=== PATIENT | female | born 1975 | race Caucasian/White ===

== ENCOUNTER → 2023-12-13 | Outpatient (CLI) | payer BC ==
--- NOTE | 2023-12-14 09:21 | MM ---
Reason for Exam: Screening (asymptomatic). Baseline mammogram. Patient History: Menarche at age 16. Patient has no children. Last menstrual period: 12/09/2023 Risk Values: Leslye 5 year model risk: 0.9%. NCI Lifetime model risk: 9.5%. Prior Study Comparison: Patient's first Mammogram. Tissue Density: There are scattered fibroglandular densities. Findings: Analyzed By CAD. There is no suspicious group of microcalcifications or new suspicious mass. Overall Assessment: Negative, BI-RAD 1 Management: Screening Mammogram of both breasts in [address] [facility] will attempt to contact patient to return for supplemental views and ultrasound if indicated. Patient should continue monthly self-breast exams. A clinical breast exam by your physician is recommended on an annual basis. This exam should not preclude additional follow-up of suspicious palpable abnormalities. Note on Leslye scores and lifetime risk: 1. A Leslye score greater than 3% is considered moderate risk. If this is the case, consider specialist referral to assess eligibility for a risk reducing agent. 2. If overall lifetime risk for the development of breast cancer is 20% or higher, the patient may qualify for future screening with alternating mammogram and breast MRI. Electronically signed and approved by: Nigel Jacobsen DO
== END | disposition home or self-care (01) ==
LOC: RADMAMWWP 07:23
PROVIDERS: ATTEND Obstetrics & Gynecology
DX: Z12.31 Encounter for screening mammogram for malignant neoplasm of breast (principal)
CPT/HCPCS: 77063; 77067

== ENCOUNTER 2024-02-24 09:16 | Day surgery (SDC) | payer BC ==
[2024-02-22 14:08] VITALS: BMI 31.0
[2024-02-24 09:58] VITALS: TEMP 97.5
[2024-02-24] MEDS: LACTATED RINGERS 1,000 ML IV SCH (09:59)
[2024-02-24] MEDS ORDERED: PROPOFOL 10 MG/ML 20 ML VIAL IV ONE (10:10)
--- NOTE | 2024-02-24 10:27 | P.PCN ---
Date of Procedure: 02/24/24 Procedure(s) Performed: BRIEF HISTORY: Patient is a 48-year-old pleasant white female scheduled for an elective colonoscopy as a part of screening for colon cancer. PROCEDURE PERFORMED: Colonoscopy. PREOPERATIVE DIAGNOSIS: Screening for colon cancer. IV sedation per Anesthesia. PROCEDURE: After informed consent was obtained, the patient, was brought into the endoscopy unit. IV sedation was administered by Anesthesia under continuous monitoring. Digital rectal examination was normal. Initially the Olympus CF-160 flexible video colonoscope was then inserted in the rectum, gradually advanced into the cecum without any difficulty. Careful examination was performed as the scope was gradually being withdrawn. Ileocecal valve and the appendiceal orifice were visualized and appeared normal. Prep was excellent. Mucosa of the cecum, ascending colon, transverse colon, descending colon, sigmoid colon, and rectum appeared normal.Scattered sigmoid diverticulosis. Retroflexion was performed in the rectum and no lesions were seen. The patient tolerated the procedure well. IMPRESSION: Normal-appearing colon from rectum to cecum with no evidence of colorectal Nnoplasia. Scattered sigmoid diverticulosis. RECOMMENDATIONS: Findings of this examination were discussed with the patient as well as a family. She was advised to have a repeat screening colonoscopy in 10 years from
[2024-02-24 11:28] VITALS: BP 111/72; PULSE 51; RESP 18
== END 2024-02-24 11:00 | disposition home or self-care (01) ==
LOC: ORWHC2ENDO 09:16
PROVIDERS: ATTEND Internal Medicine Gastroenterology
DX: Z12.11 Encounter for screening for malignant neoplasm of colon (principal); K57.30 Diverticulosis of large intestine without perforation or abscess without bleeding; Z88.5 Allergy status to narcotic agent; Z87.891 Personal history of nicotine dependence; Z98.890 Other specified postprocedural states
CPT/HCPCS: 81025; 45378; J2704

== ENCOUNTER → 2024-03-19 | Outpatient (CLI) | payer BC ==
[2024-03-19 10:54] LABS: Blood Urea Nitrogen 13.2 mg/dL (9.0-27.0); Calcium 9.6 mg/dL (8.7-10.3); Carbon Dioxide 25.3 mmol/L (21.6-31.8); Chloride 104 mmol/L (96-109); Glucose 101 mg/dL (70-110); Potassium 5.2 mmol/L (3.5-5.5); Sodium 139 mmol/L (135-145)
[2024-03-19 13:20] LABS: Basophils # (A) 0.05 X 10*3/uL (0.00-0.10); Basophils % (A) 1.1 %; Eosinophils # (A) 0.31 X 10*3/uL (0.04-0.35); Eosinophils % (A) 6.8 %; HCT 43.5 % (37.2-46.3); HGB 14.4 g/dL (12.0-15.0); Lymphocytes # (A) 1.31 X 10*3/uL (0.90-5.00); Lymphocytes % (A) 28.9 %; MCHC 33.1 g/dL (32.0-37.0); MCV 96.7 FL (80.0-97.0); Mean Platelet Volume 11.5 FL (9.5-12.2); Monocytes # (A) 0.39 X 10*3/uL (0.20-1.00); Monocytes % (A) 8.6 %; NRBC Per 100 WBC 0 X 10*3/uL (0.00-0.01); Neutrophils # (A) 2.46 X 10*3/uL (1.80-7.70); Neutrophils % (A) 54.4 %; Platelet Count 210 X 10*3/uL (140-440); RBC Morphology Normal (Normal); RDW 12.1 % (11.5-14.5); WBC 4.53 X 10*3/uL (4.50-10.00)
== END | disposition home or self-care (01) ==
LOC: LABWHC1 07:54
PROVIDERS: ATTEND Orthopaedic Surgery Hand Surgery
DX: Z01.812 Encounter for preprocedural laboratory examination (principal); R22.32 Localized swelling, mass and lump, left upper limb
CPT/HCPCS: 36415; 80048; 85025

== ENCOUNTER 2024-03-28 09:01 | Day surgery (SDC) | payer BC ==
[2024-03-23 16:09] VITALS: BMI 30.2
--- NOTE | 2024-03-26 11:17 | P.HPOR ---
History of Present Illness H&P Date: 03/26/24 Subjective: This is a 48 year old female that presents today for initial evaluation regarding a 2 year history of a left volar wrist soft tissue mass. She denies any injury or inciting event. She states it is minimally symptomatic and only painful when paddling or kayaking. She states it has fluctuated in size over the last year and has increased within the last 6 months. Physical Examination: LUE: AIN/PIN/Radial/Ulnar/Median motor intact. Radial/Ulnar/Median SILT. 2+/4 Radial/Ulnar pulses palpated. 5/5 APB, 5/5 FDI. Negative Finkelsteins, negative CMC grind, negative Durkan's compression. 3x3 cm volar soft tissue mass along radial aspect of wrist. Imaging: X-Rays of the left wrist 3V taken in office today demonstrate no abnormality. Impression: 1.) Left wrist volar soft tissue mass. Plan: Diagnosis and treatment options were discussed with the patient. She has an upcoming [place] in [place] in the middle of March and would like to hold off until after the [place] to have it removed. She is scheduled for left wrist soft tissue mass excision. Risks and benefits of surgery including bleeding, infection, recurrence, damage to surrounding tissue, need for further surgery, residual numbness were discussed and the patient wished to go forward with surgery. The patient was agreeable with this plan. CC: Serafin Davis MD -Abhishek Rosa DO Orthopedic Hand/Upper Extremity Surgeon Past Medical History Past Medical History: No Reported History History of Any Multi-Drug Resistant Organisms: None Reported Past Surgical History: Cholecystectomy Additional Past Surgical History / Comment(s): COLONOSCOPY Past Anesthesia/Blood Transfusion Reactions: No Reported Reaction Additional Past Anesthesia/Blood Transfusion Reaction / Comment(s): no blood transfusion Smoking Status: Former smoker - Past Family History Mother Family Medical History: No Reported History Medications and Allergies Home Medications Medication Instructions Recorded Confirmed Type No Known Home Medications 02/22/24 03/23/24 History Allergies Allergy/AdvReac Type Severity Reaction Status Date / Time meperidine [From Demerol] Allergy Rash/Hives Verified 03/23/24 15:57 Physical Examination Osteopathic Statement: *. No significant issues noted on an osteopathic structural exam other than those noted in the History and Physical/Consult.
[~2024-03-28 09:01] MED LIST: HYDROmorphone 0.5 MG/0.5 ML SYRINGE IVP PRN; LIDOCAINE 1% (10MG/ML) FOR IV START INTRADERMA PRN
[2024-03-28] MEDS: LACTATED RINGERS 1,000 ML IV SCH (09:42)
[2024-03-28] MEDS ORDERED: ONDANSETRON 4 MG/2 ML VIAL ONE (09:48)
[2024-03-28] MEDS: ONDANSETRON 4 MG/2 ML VIAL IVP ONE (09:50)
[2024-03-28] MEDS: DEXAMETHASONE SOD PHOSPHATE 4 MG/ML 1 ML VIAL IV ONE (09:50)
[2024-03-28] MEDS: BUPIVACAINE (PF) 0.5% 30 ML VIAL SQ ONE ×2 (10:24→11:05)
[2024-03-28] MEDS ORDERED: MIDAZOLAM 2 MG/2 ML VIAL ONE (10:24)
[2024-03-28] MEDS ORDERED: fentaNYL (PF) 50 MCG/ML 2 ML AMP ONE (10:24)
[2024-03-28] MEDS ORDERED: PROPOFOL 10 MG/ML 20 ML VIAL IV ONE (10:24)
[2024-03-28] MEDS ORDERED: LIDOCAINE 1% INJ 10MG/ML (20 ML MDV) ONE (10:24)
--- NOTE | 2024-03-28 11:33 | P.OP ---
Date of Procedure: 03/28/24 Preoperative Diagnosis: Left wrist soft tissue mass Postoperative Diagnosis: Left wrist soft tissue mass Procedure(s) Performed: 1.) Left volar wrist soft tissue mass excision, 3.5x3cm 2.) Left wrist flexor carpi radialis tendon sheath decompression Surgeon: Abhishek Rosa Chainstitch Felled Seam Operator #1: [place] Estimated Blood Loss (ml): 0 Pathology: none sent Condition: stable Disposition: PACU Description of Procedure: This is a 48 year old female who presents today for a left wrist volar soft tissue mass excision after having failed conservative treatment. Risks and benefits of surgery were discussed with the patient including bleeding, damage to surrounding tissue, infection, need for further surgery, recurrence, as well as risks of anesthesia including pulmonary embolism and even and the patient wished to proceed with surgical intervention. The patient was seen in th e pre-operative area by myself. Consent and H&P were completed and updated. The correct extremity was marked in the pre-operative area by myself and all other questions were answered. Operative Narrative: The patient was brought to the operating room by the department of anesthesia. They remained on the portable stretcher and a rolling hand table was brought to the side of the operative extremity. Pre-operative time out was performed indicating the correct patient, procedure and laterality. All in the room agreed. Pre-operative antibiotics were given prior to skin incision. The patient was then drifted off to sleep by the department of anesthesia. A nonsterile tourniquet was then applied to the operative extremity and the left upper extremity was then prepped and draped in normal sterile fashion. The operative extremity was the exsanguinated with an esmarch bandage and the tourniquet was inflated to 250mmHg. A longitudinal incision was made over the volar aspect of the wrist overlying the prominent soft tissue mass located on a volar radial portion of the wrist. Blunt dissection was taken down through subcutaneous tissues taking care to protect the radial artery and surrounding branches. After subcutaneous dissection was performed a 3x3.5cm multilobulated clear gelatinous mass was identified and encased around and superficial to the FCR tendon. The mass was carefully dissected out and direct communication of the stalk was followed down to the FCR tendon sheath which was decompressed with tenotomy scissors. Bovie cautery was used to cauterize the origin of the stalk taking care to preserve the volar wrist ligaments. Minor superficial venous bleeding was controlled with bovie cautery. The wound was then closed with 4-0 Monocryl suture followed by steri strips and 10cc's of 0.5 % bupivacaine was injected into the surgical area. A soft dressing consisting of 4x4s, cast padding and an bruce wrap was applied. Tourniquet was let down and the digits had immediate normal perfusion. [place] CHRISTIAN was present for the case in it's entirety to assist in retraction and protection of vital neurovascular structures. The patient was then transferred to PACU in stable condition. Abhishek Rosa DO Orthopedic Hand/Upper Extremity Surgeon
[2024-03-28 11:38] VITALS: TEMP 97
[2024-03-28 12:34] VITALS: RESP 18
[2024-03-28 13:34] VITALS: BP 109/64; PULSE 44
== END 2024-03-28 13:23 | disposition home or self-care (01) ==
LOC: OR 09:01
PROVIDERS: ATTEND Orthopaedic Surgery Hand Surgery
DX: R22.32 Localized swelling, mass and lump, left upper limb (principal); Z87.891 Personal history of nicotine dependence; Z88.5 Allergy status to narcotic agent; Z90.49 Acquired absence of other specified parts of digestive tract
CPT/HCPCS: 25071; 25001; 81025; J2250; J1100; J0690; J2405; J2001; J3010; J2704; J0665

== ENCOUNTER → 2025-03-11 | Outpatient (CLI) | payer BC ==
--- NOTE | 2025-03-12 07:39 | MM ---
Reason for Exam: Screening (asymptomatic). Last mammogram was performed 1 year(s) and 3 month(s) ago. Patient History: Menarche at age 16. Patient has no children. Perimenopausal. Risk Values: Leslye 5 year model risk: 0.9%. NCI Lifetime model risk: 9.3%. Prior Study Comparison: 12/13/2023 Bilateral MG 3D screening mammo w/cad, [facility]. Tissue Density: The breasts are almost entirely fatty. Findings: Analyzed By CAD. Right breast: There is no suspicious group of microcalcifications or new suspicious mass. Left breast: There is no suspicious group of microcalcifications or new suspicious mass. Overall Assessment: Negative, BI-RAD 1 Management: Screening Mammogram of both breasts in [address] [facility] will attempt to contact patient to return for supplemental views and ultrasound if indicated. Patient should continue monthly self-breast exams. A clinical breast exam by your physician is recommended on an annual basis. This exam should not preclude additional follow-up of suspicious palpable abnormalities. Note on Leslye scores and lifetime risk: 1. A Leslye score greater than 3% is considered moderate risk. If this is the case, consider specialist referral to assess eligibility for a risk reducing agent. 2. If overall lifetime risk for the development of breast cancer is 20% or higher, the patient may qualify for future screening with alternating mammogram and breast MRI. [facility], , 03/12/2025 7:36 AM. Electronically signed and approved by: Nigel Jacobsen DO
== END | disposition home or self-care (01) ==
LOC: RADMAMWWP 16:09
DX: Z12.31 Encounter for screening mammogram for malignant neoplasm of breast (principal); R92.313 Mammographic fatty tissue density, bilateral breasts
CPT/HCPCS: 77063; 77067